=== PATIENT | female | born 1975 | race Caucasian/White ===

== ENCOUNTER 2019-08-13 13:17 | Observation (INO) | payer BC ==
[~2019-08-13] VITALS: Ht 157.5 cm; Wt 75.3 kg
[2019-08-13 13:38] LABS: EOSINOPHILS % (AUTO) 7.8 % (0.0-8.0); HEMATOCRIT 41.8 % (36-48); LYMPHOCYTES % (AUTO) 31.7 % (21.0-51.0); MEAN CORPUSCULAR HEMOGLOBIN 30.1 pg (27.0-33.0); MEAN CORPUSCULAR HGB CONC 33.2 g/dL (32.0-36.0); MEAN CORPUSCULAR VOLUME 90.6 fL (79-99); MONOCYTES % (AUTO) 10.8 % (3.0-13.0); NEUTROPHILS % (AUTO) 48.7 % (40.0-77.0); PLATELET COUNT (AUTO) 295 K/uL (130-400); RED BLOOD CELL COUNT(AUTO) 4.61 MIL/uL (4.00-5.50); RED CELL DISTRIBUTION WIDTH 14.5 % (11.0-15.5); WHITE BLOOD COUNT (AUTO) 4.7 K/uL (4.8-10.8)
[2019-08-13 13:46] LABS: POTASSIUM 3.6 mmol/L (3.5-5.1)
[2019-08-13 13:47] LABS: INR 0.95 (0.85-1.15); PARTIAL THROMBOPLASTIN TIME 25.6 SEC (26.3-35.5)
[2019-08-13 13:51] LABS: ALBUMIN 3.5 g/dL (3.5-5.0); BILIRUBIN,TOTAL 0.2 mg/dL (0.2-1.0); TOTAL PROTEIN, SERUM 7.3 g/dL (6.0-8.3)
[2019-08-13 14:17] LABS: B-TYPE NATRIURETIC PEPTIDE 9 pg/mL (0-100)
[2019-08-13 14:46] LABS: APPEARANCE,URINE Clear (CLEAR); BILIRUBIN,URINE Negative (NEGATIVE); COLOR,URINE Yellow (YELLOW); GLUCOSE, URINE (UA) Negative (NEGATIVE); HCG,QUAL RESULT NEGATIVE (NEGATIVE); KETONES,URINE Negative (NEGATIVE); LEUKOCYTE ESTERASE ,URINE Negative (NEGATIVE); NITRATE,URINE Negative (NEGATIVE); OCCULT BLOOD,URINE Negative (NEGATIVE); PH,URINE 7.5 (5.0-8.0); PROTEIN,URINE Negative (NEGATIVE); UROBILINOGEN,URINE 0.2 mg/dL (0.2-1.0)
[2019-08-13 14:53] LABS: AMPHET/METH SCREEN,URINE NEGATIVE (NEGATIVE); BARBITURATE SCREEN, URINE NEGATIVE (NEGATIVE); BENZODIAZEPINES SCREEN,URINE NEGATIVE (NEGATIVE); CANNABINOID SCREEN,URINE NEGATIVE (NEGATIVE); COCAINE SCREEN,URINE NEGATIVE (NEGATIVE); OPIATE SCREEN,URINE NEGATIVE (NEGATIVE); PHENCYCLIDINE SCREEN,URINE NEGATIVE (NEGATIVE)
[2019-08-13] MEDS ORDERED: ASPIRIN 325 MG TABLET ONE (15:03)
[2019-08-13] MEDS ORDERED: NITROGLYCERIN 1GM/1 INCH PACKET TD ONE (15:03)
[2019-08-13] MEDS ORDERED: METOPROLOL TARTRATE 1 MG/ML 5ML VIAL IV ONE (16:16)
[2019-08-13] MEDS ORDERED: LACTATED RINGERS 1000ML 1,000 ML IV ONE (16:44)
[2019-08-13] MEDS ORDERED: ENOXAPARIN SODIUM 40 MG/0.4 ML SYRINGE SQ ONE (16:44)
[2019-08-13] MEDS ORDERED: HYDROCODONE/ACETAMINOPHEN 5/325 MG TAB ONE (16:44)
[2019-08-13] MEDS ORDERED: ONDANSETRON HCL 4 MG/2 ML VIAL IVP PRN (17:30)
[2019-08-13] MEDS ORDERED: LABETALOL 20 MG/4 ML DISP.SYRIN IV PRN (17:30)
[2019-08-13] MEDS ORDERED: HYDROCODONE/ACETAMINOPHEN 5/325 MG TAB PO PRN (17:30)
[2019-08-13] MEDS ORDERED: ACETAMINOPHEN 325 MG TAB PO PRN (17:30)
[2019-08-13] MEDS ORDERED: MORPHINE SULFATE 2 MG/ML 1ML SYG IVP PRN (17:30)
[2019-08-13 19:54] VITALS: BP 157/87
[2019-08-13 20:27] LABS: CREATINE KINASE, TOTAL 53 U/L (21-232); MYOGLOBIN 36 ng/mL (10-92); TROPONIN I < 0.04 ng/mL (0.00-0.06)
[2019-08-13] MEDS ORDERED: ATORVASTATIN CALCIUM 40 MG TABLET PO SCH (21:00)
[2019-08-13] MEDS: INSULIN R PO SS1 SQ SCH (21:00)
[2019-08-13] MEDS: METOPROLOL TARTRATE 25 MG TAB PO SCH (21:00)
[2019-08-13 22:15] VITALS: BP 101/63
[2019-08-13] MEDS: LACTATED RINGERS 1000ML 1,000 ML IV SCH (22:48)
--- NOTE | 2019-08-14 01:02 | NUR ---
NPO Pt aware of lexiscan ordered for am,Npo maintained.
[2019-08-14 02:51] LABS: HEMATOCRIT 38.3 % (36-48); MEAN CORPUSCULAR HGB CONC 32.7 g/dL (32.0-36.0); MEAN CORPUSCULAR VOLUME 91.6 fL (79-99); PLATELET COUNT (AUTO) 266 K/uL (130-400); RED BLOOD CELL COUNT(AUTO) 4.18 MIL/uL (4.00-5.50); RED CELL DISTRIBUTION WIDTH 14.3 % (11.0-15.5); WHITE BLOOD COUNT (AUTO) 6.3 K/uL (4.8-10.8)
[2019-08-14 03:12] LABS: CARBON DIOXIDE 24 mmol/L (21-32); CHLORIDE 111 mmol/L (101-111); CREATINE KINASE, TOTAL 39 U/L (21-232); CREATININE 1.1 mg/dL (0.5-1.5); GLOMERULAR FILTR. RATE CALC 57 mL/min (>60); GLUCOSE,RANDOM 108 mg/dL (70-105); MYOGLOBIN 26 ng/mL (10-92); POTASSIUM 3.6 mmol/L (3.5-5.1); SODIUM SERUM 143 mmol/L (136-145); TROPONIN I < 0.04 ng/mL (0.00-0.06); UREA NITROGEN, BLOOD 16 mg/dL (7-18)
[2019-08-14 04:00] VITALS: BP_SYST 90; BP_SYST 91; BP_DIAS 56; BP_DIAS 57
[2019-08-14] MEDS: INSULIN R PO SS1 SQ SCH ×3 (05:31→16:30)
[2019-08-14] MEDS: LACTATED RINGERS 1000ML 1,000 ML IV SCH (06:50)
[2019-08-14 07:00] VITALS: BP 102/65
[2019-08-14] MEDS ORDERED: REGADENOSON 0.4 MG/5 ML PF SYG IVP SCH (07:45)
[2019-08-14] MEDS ORDERED: ENOXAPARIN SODIUM 40 MG/0.4 ML SYRINGE SQ SCH (09:00)
[2019-08-14] MEDS ORDERED: ASPIRIN 81MG TAB.CHEW PO SCH (09:00)
[2019-08-14] MEDS ORDERED: BUPR300T54 PO (10:35)
[2019-08-14] MEDS ORDERED: TOPI200C6 PO (10:35)
[2019-08-14] MEDS ORDERED: TIZA2CAP9 PO (10:35)
[2019-08-14] MEDS ORDERED: NAPR-1023 PO (10:35)
[2019-08-14] MEDS ORDERED: LEVO75TA10 PO (10:35)
[2019-08-14] MEDS ORDERED: VILA10TA PO (10:35)
[2019-08-14] MEDS ORDERED: EREN70AU2 SQ (10:36)
[2019-08-14 12:00] VITALS: BP 119/72
[2019-08-14] MEDS: METOPROLOL TARTRATE 25 MG TAB PO SCH (13:28)
[2019-08-14 16:00] VITALS: BP 99/63
[2019-08-14] MEDS ORDERED: IOHEXOL-350 75 ML VIAL IV ONE (16:09)
[2019-08-14 19:05] VITALS: BP 106/54
[2019-08-14] MEDS ORDERED: METO25 PO (19:23)
[2019-08-14] MEDS ORDERED: ASPI-1005 PO (19:23)
[2019-08-14] MEDS ORDERED: ATOR40TA69 PO (19:23)
--- NOTE | 2019-08-14 21:05 | NUR ---
MD DR ulloa came to talk to pt.Discharge instructions given.Prescription given to pt.Verbalized understanding.
== END 2019-08-14 21:05 | disposition home or self-care (01) ==
LOC: EDH 13:17 → EDHIP 16:10 → 4CH 17:45
PROVIDERS: ADMIT Internal Medicine Critical Care Medicine; ATTEND Internal Medicine Critical Care Medicine
DX: R07.89 Other chest pain (principal); R79.1 Abnormal coagulation profile; F41.9 Anxiety disorder, unspecified; F32.9 Major depressive disorder, single episode, unspecified; R00.0 Tachycardia, unspecified; E03.9 Hypothyroidism, unspecified; G43.909 Migraine, unspecified, not intractable, without status migrainosus; Z79.899 Other long term (current) drug therapy; Z79.82 Long term (current) use of aspirin
CPT/HCPCS: 36415; 71045; 71275; 78452; 80048; 80053; 80305; 81003; 81025; 82550; 82948; 83874; 83880; 84484; 84702; 85025; 85027; 85378; 85610; 85730; 93005; 93017; 93306; 93970; 96372; 96374; A9500; G0378; J1650; J2785; J3490; J7120; Q9967

== ENCOUNTER → 2019-09-26 | Outpatient (CLI) | payer BC ==
[~2019-09-26] MED LIST: ASPI-1005 PO; ATOR40TA69 PO; BUPR300T54 PO; EREN70AU2 SQ; LEVO75TA10 PO; METO25 PO; NAPR-1023 PO; TIZA2CAP9 PO; TOPI200C6 PO; VILA10TA PO
== END | disposition home or self-care (01) ==
LOC: RAH 09:32
PROVIDERS: ATTEND Internal Medicine Gastroenterology
DX: K21.9 Gastro-esophageal reflux disease without esophagitis (principal); K44.9 Diaphragmatic hernia without obstruction or gangrene
CPT/HCPCS: 74240

== ENCOUNTER 2021-08-04 17:19 | Emergency (ER) | payer BC ==
[~2021-08-04] VITALS: Ht 157.5 cm; Wt 90.7 kg
[~2021-08-04 17:19] MED LIST changes: +BUPR-317 PO; -BUPR300T54 PO
[2021-08-04] MEDS ORDERED: 0.9%NACL 1000ML 1,000 ML IV ONE (17:30)
[2021-08-04] MEDS ORDERED: ACETAMINOPHEN 500 MG TABLET PO ONE (17:30)
[2021-08-04 17:44] LABS: APPEARANCE,URINE CLOUDY (CLEAR); BILIRUBIN,URINE NEGATIVE (NEGATIVE); COLOR,URINE YELLOW (YELLOW); GLUCOSE, URINE (UA) NEGATIVE (NEGATIVE); KETONES,URINE 5 mg/dL (NEGATIVE); LEUKOCYTE ESTERASE ,URINE LARGE (NEGATIVE); NITRATE,URINE POSITIVE (NEGATIVE); OCCULT BLOOD,URINE MODERATE (NEGATIVE); PH,URINE 6.5 (5.0-8.0); PROTEIN,URINE 30 mg/dL (NEGATIVE); UROBILINOGEN,URINE 0.2 mg/dL (0.2-1.0)
[2021-08-04 17:49] LABS: HCG,QUAL RESULT NEGATIVE (NEGATIVE)
[2021-08-04 17:51] LABS: BACTERIA,URINE Few /HPF (None Seen); SQUAMOUS EPITHELIAL CELL,UR Rare /HPF (0-2); WBC,URINE 26-50 /HPF (0-1)
[2021-08-04 17:52] LABS: CALCIUM OXALATE CRYSTALS,UR Few /LPF (None Seen)
[2021-08-04 17:54] LABS: BASOPHILS % (AUTO) 0.6 % (0.0-5.0); EOSINOPHILS % (AUTO) 2.1 % (0.0-8.0); HEMATOCRIT 38.6 % (36-48); LYMPHOCYTES % (AUTO) 16.3 % (21.0-51.0); MEAN CORPUSCULAR HEMOGLOBIN 26.1 pg (27.0-33.0); MEAN CORPUSCULAR HGB CONC 30.6 g/dL (32.0-36.0); MEAN CORPUSCULAR VOLUME 85.4 fL (79-99); MONOCYTES % (AUTO) 6.2 % (3.0-13.0); NEUTROPHILS % (AUTO) 74.3 % (40.0-77.0); PLATELET COUNT (AUTO) 396 K/uL (130-400); RED BLOOD CELL COUNT(AUTO) 4.52 MIL/uL (4.00-5.50); RED CELL DISTRIBUTION WIDTH 17.8 % (11.0-15.5)
[2021-08-04] MEDS ORDERED: CEFTRIAXONE 1G VIAL IVP ONE (18:00)
[2021-08-04 18:06] LABS: CREATININE 1.1 mg/dL (0.5-1.5); POTASSIUM 3.2 mmol/L (3.5-5.1)
[2021-08-04 18:10] LABS: ALBUMIN 3.8 g/dL (3.5-5.0); TOTAL PROTEIN, SERUM 8.2 g/dL (6.0-8.3)
[2021-08-04 18:24] LABS: BILIRUBIN,TOTAL 0.1 mg/dL (0.2-1.0)
[2021-08-04] MEDS ORDERED: POTASSIUM BICARB/CIT AC 25 MEQ TABLET.EFF ONE (18:27)
[2021-08-04] MEDS ORDERED: POTASSIUM BICARB/CIT AC 25 MEQ TABLET.EFF PO ONE (18:30)
[2021-08-04] MEDS ORDERED: ONDANSETRON 4MG INJ ONE (18:45)
[2021-08-04] MEDS ORDERED: MORPHINE 2 MG SYG ONE (18:46)
[2021-08-04] MEDS ORDERED: CEPH500B PO (18:56)
[2021-08-04] MEDS ORDERED: ONDA4TAB10 PO (18:56)
[2021-08-04] MEDS ORDERED: PHEN-847 PO (18:56)
[2021-08-04] MEDS ORDERED: MORPHINE 2 MG SYG IVP ONE (19:00)
[2021-08-04] MEDS ORDERED: ONDANSETRON 4MG INJ IVP ONE (19:00)
[2021-08-04 19:08] VITALS: BP 110/78
== END 2021-08-04 19:21 | disposition home or self-care (01) ==
LOC: EDH 17:19
DX: N39.0 Urinary tract infection, site not specified (principal); I95.9 Hypotension, unspecified; E03.9 Hypothyroidism, unspecified; F32.A Depression, unspecified
CPT/HCPCS: 36415; 71045; 74176; 80053; 81001; 81025; 83605; 85025; 86140; 87040 ×2; 87077; 87088; 87186; 96374; 96375; 99284; J0696; J2405; J7030

== ENCOUNTER → 2023-09-04 | Outpatient (CLI) | payer BC ==
[~2023-09-04] MED LIST changes: +CEPH500B PO; +ONDA4TAB10 PO; +PHEN-847 PO
== END | disposition home or self-care (01) ==
LOC: SHCH 10:09
PROVIDERS: ATTEND Internal Medicine
DX: R55 Syncope and collapse (principal)
CPT/HCPCS: 93306